=== PATIENT | male | born 1930 | race Caucasian/White ===

== ENCOUNTER 2017-03-16 18:10 | Inpatient (IN) | payer MEDICARE, OTHER ==
--- NOTE | 2017-03-16 18:37 | ERNOTE ---
Medical Problem HPI - Narrative Date of Service: 03/16/17 - General Chief Complaint: General Assessment Time Seen by Provider: 03/16/17 18:21 Source: patient, EMS, half-way records Exam Limitations: no limitations - Immun/Allergies/Home Medications Immunizations: IMMUNIZATION HX Immunizations Up to Date Yes History of Influenza Vaccine Yes Hx Pneumococcal Vaccination Yes Allergies/Adverse Reactions: Allergies No Known Allergies Allergy (Verified 09/20/14 11:36) Home Medications: HOME MEDICATIONS Aspirin [Aspirin Enteric Coated] 81 mg PO DAILY 09/07/14 [Last Taken Unknown] Bisacodyl [Dulcolax Suppository] 10 mg RC DAILY PRN 09/07/14 [Last Taken Unknown ] Calcium Carbonate [Tums] 500 mg PO BID 09/07/14 [Last Taken Unknown] Cyanocobalamin (Vitamin B-12) [Vitamin B-12] 500 mcg SL DAILY 09/07/14 [Last Taken Unknown] Docusate Sodium [Colace] 1 cap PO BID PRN 09/07/14 [Last Taken Unknown] Finasteride [Proscar] 5 mg PO DAILY 09/07/14 [Last Taken Unknown] Insulin Aspart [Novolog] 4 units SC 1100 PRN 09/07/14 [Last Taken Unknown] Insulin Aspart [Novolog] 11 units SC 1700 09/07/14 [Last Taken Unknown] Insulin Glargine,Hum.rec.anlog [Lantus] 20 units SC HS 09/07/14 [Last Taken Unknown] Loperamide HCl [Imodium] 2 mg PO DAILY PRN 09/07/14 [Last Taken Unknown] Lovastatin 10 mg PO HS 09/07/14 [Last Taken Unknown] Nitroglycerin [Nitrostat] 0.4 mg SL Q5MIN PRN 09/07/14 [Last Taken Unknown] Metoprolol Tartrate [Lopressor] 25 mg PO BID tablet 09/13/14 [Last Taken Unknown] Furosemide [Lasix] 80 mg PO TID #90 tab 09/22/14 [Last Taken Unknown] Chlorhexidine Gluconate 03/16/17 [Last Taken Unknown] Insulin Aspart [Novolog] 5 units SC 0700 03/16/17 [Last Taken Unknown] Insulin Glargine,Hum.rec.anlog [Lantus] 5 units SC DAILY 03/16/17 [Last Taken Unknown] Iron Aspgly,Ps/C/Succinic Acid [Ferrex 150 Plus Capsule] 1 each PO BID 03/16/17 [Last Taken Unknown] Omeprazole [Prilosec] 20 mg PO DAILY 03/16/17 [Last Taken Unknown] Potassium Chloride [Klor-Con M20] 20 meq PO BID 03/16/17 [Last Taken Unknown] Primidone 250 mg PO HS 03/16/17 [Last Taken Unknown] Protonix 40 mg PO DAILY 03/16/17 [Last Taken Unknown] Temazepam 15 mg PO HS 03/16/17 [Last Taken Unknown] - History of Present History Narrative: Patient presents to the ER per EMS from care facility with complaints of bilateral periorbital swelling with peripheral edema. Staff state he holds his head in a forward position leading to more fluid in the face. Date (Duration): 02/27/17 Timing: getting worse Severity: moderate Modifying Factors - (Improves): Present: medication, other - When he lays his head back rather than forward. Modifying Factors - (Worsens): Present: other - tipping head foreward. Review of Systems - Narrative Narrative: Patient denying any pain at this time. States he has chronic pain in the back and hip causing him to hold the head forward and down leading to the increased swelling. Staff state he has less activity with increase malaise over the past few days. - Review of Systems Constitutional: Present: no symptoms reported EYE: Present: other - Difficult to see out due to periorbital swelling and edema. ENT: Present: no symptoms reported Respiratory: Present: no symptoms reported Cardiology: Present: no symptoms reported Gastrointestinal/Abdominal: Present: no symptoms reported Musculoskeletal: Present: other - Patient complains of chronic back and right hip pain. Skin: Present: other - Has noticed more swelling across body including periorbital and in lower extremities. Neurological: Present: other - Patient denies any neurological changes but staff state he is less active. - Patient's Past Medical History Patient History - Medical: Diabetes Type 2, Dementia, Renal Disease, Renal Failure Patient History - Cardiac/Respiratory: Atrial Fibrillation, CHF, Hypertension Patient History - Cancer: Skin Patient History - Surgical Procedures: Cardiac stent Patient History - Other: None - Family History Mother Family History - Medical: , Diabetes Type 2 Family History - Cardiac/Respiratory: Other Father Family History - Medical: , Diabetes Type 2 Family History - Cardiac/Respiratory: Other - Social History Abuse History: No History of abuse Psych History: Hx of Depression - Immunizations Immunizations Up to Date: Yes Hx Pneumococcal Vaccination: Yes History of Influenza Vaccine: Yes Physical Exam - Physical Exam General Appearance: Present: wd/wn, alert Eye Exam: Normal inspection: bilateral - Bilateral periorbital swelling. , PERRL : bilateral, EOMI: bilateral Neck: Present: normal inspection, supple, other - No bruits Respiratory: Present: other - Course throughout. No rales or rhonchi. Cardiovascular/Chest: Present: bradycardia, other - Systolic murmur present. Peripheral Pulses: N=norm/S=strong/W=weak/B=bound/A=absent: Dorsalis-pedis (R): Weak - Likely due to edema, Dorsalis-pedis (L): Weak - likely due to edema Gastrointestinal/Abdominal: Present: nontender, nondistended, soft, other - Hyperactive BS Extremity Exam: Present: other - Significant pedal edema 3+ pitting. Sensation intact. Cap refill <3 seconds Neurological Exam: Present: alert, oriented Skin Exam: Present: warm/dry ED Progress - Results and Orders Patient's Lab Results:: I have reviewed the patient's lab results. - Vital Signs Patient's Vital Signs:: I have reviewed the patient's vital signs. Vital Signs: Vital Signs 03/16/17 03/16/17 18:12 18:27 Temperature 36.4 C L Pulse Rate 48 L 42 L Respiratory 15 11 L Rate Blood Pressure 94/33 139/46 O2 Sat by Pulse 93 92 Oximetry - EKG EKG read: Reviewed by me EKG Comments: Bradycardia with 1st degree block. - Progress/Reassessment Chief Complaint: General Assessment Progress:: Re-examined - No significant changes at this time. - Transfer of Care Additional Notes: Have given the patient the option to transfer to [place] to be evaluated for possible pacemaker. Patient wished for me to contact son Steven who felt at this time it would be best to hold off on evaluation by cardiology. Patient agreed that they could possibly make such a decision next week if they desired. At this time they are refusing any consideration of a pacemaker. Patient is a DNR. Departure Clinical Impression: CHF (congestive heart failure) Qualifiers: Congestive heart failure type: diastolic Congestive heart failure chronicity: acute on chronic Qualified Code(s): I50.33 - Acute on chronic diastolic ( congestive) heart failure - Departure Disposition: [facility] Condition: Fair
[2017-03-16 18:54] LABS: Hematocrit 33.9 % (42.0-52.0); Hemoglobin 10.6 gm/dL (13.5-18.0); Mean Cell Volume 94.7 fl (78-100); Mean Corpuscular Hemoglobin 29.6 pg (27-31); Mean Corpuscular Hgb Conc 31.3 g/dl (32-36); Mean Platelet Volume 9.4 fl (6.0-9.5); Neutrophil # 4.4 K/mm3 (1.3-6.0); Neutrophil % 52.3 % (42-75.0); Platelet Count 147 K/mm3 (150-450); Red Blood Count 3.58 M/mm3 (4.7-6.0); Red Cell Distribution Width 14.3 % (11.5-14.0); White Blood Count 8.5 K/mm3 (4.0-10.5)
[2017-03-16 19:14] LABS: Anion Gap 17.3 mmol/L (6.8-13.8); BUN/Creatinine Ratio 23.1 (9.0-21.6); Calcium * 8.2 mg/dL (7.9-10.9); Carbon Dioxide 15.8 mmol/L (24-32.6); Potassium 5.1 mmol/L (3.4-4.6)
[2017-03-16] MEDS ORDERED: FUROSEMIDE 10 MG/ML VIAL IV ONE ×2 (19:21→23:21)
[2017-03-16] MEDS ORDERED: FUROSEMIDE 10 MG/ML VIAL ONE (19:24)
[2017-03-16] MEDS ORDERED: DEXTROSE 50%-WATER 50 ML SYRG ONE (21:48)
[2017-03-16] MEDS ORDERED: DEXTROSE 50%-WATER 50 ML SYRG IV ONE (21:54)
--- NOTE | 2017-03-17 00:05 | HP ---
Chief Complaint - Chief Complaint Date of Service: 03/17/17 Time of Service: 23:30 Chief Complaint: ' Weakness, increaseing swelling on eyes and legs'. Source of HPI- Pt reliable, ER provider report. History of Present Illness: Mr. Nobles is a 86-yr-old pt of Dr. Manav Noland with a PMH of: A-fib, BPH, CAD,CHF, CVA, COPD, DM II, HTN & PVD. Pt is a prison care resident at the [facility] and was brought to [facility] ER with of complaints of bilateral periorbital swelling with peripheral edema and fatigue Pt expresses concerns with increasing leg swelling for several days. He is on Lasix 80mg po tid and has been taking his medications. He denies Coughing, SOB, fevers, and chills. At the ED, CXR findings showed increased vascular congestion, concerning for CHF. Lab work showed : BNP of 6804, BUN/CR of 33/1.43. He was also found to be Bradycardic with HR in the 30s-40s (Usually on Metoprolol Tart. 25mg bid). He will be admitted under observation for CHF exacerbation which will respond well to continued IV diuretics and to monitor response. - Patient's Past Medical History Patient History - Medical: Diabetes Type 2, Dementia, Renal Disease, Renal Failure Patient History - Cardiac/Respiratory: Atrial Fibrillation, CHF, Hypertension Patient History - Cancer: Skin Patient History - Surgical Procedures: Cardiac stent Patient History - Other: None - Family History Mother Family History - Medical: , Diabetes Type 2 Family History - Cardiac/Respiratory: Other Father Family History - Medical: , Diabetes Type 2 Family History - Cardiac/Respiratory: Other - Social History [facility] Situations[facility] Abuse History: No History of abuse Psych History: Hx of Depression Smoking Status: Former smoker Have you smoked in the past 12 months: No Do you dip or chew tobacco: No Patient requests Smoking Cessation Consult: No Initiate information on Smoking Cessation: No - Immunizations Immunizations Up to Date: Yes Hx Pneumococcal Vaccination: Yes History of Influenza Vaccine: Yes Review Of Systems (GEN) - Review of Systems Generalized/Overall Review: Present: Weakness, Weight gain. Absent: Chills, Fever, Malaise EENTM: Absent: Eye Pain, Blurred Vision Respiratory: Present: Cough. Absent: Shortness of Breath, Orthopnea Cardiac: Present: Edema. Absent: Chest Pain, Palpitations, Syncope Abdominal: Present: Diarrhea. Absent: Nausea, Vomiting, Hematemesis, Abdominal Pain, Constipation Genitourinary: Absent: Burning, Itching, Urgency Musculoskeletal: Absent: Joint Pain, Back Pain, Joint Swelling Neurological: Absent: Headache, Anxiety, Depressed Skin: Absent: Dryness, Lesions, Lumps Endocrine: Absent: Intolerance to Cold, Increased Hunger, Flushing Misc: All systems neg except as marked Immunizations: IMMUNIZATION HX Immunizations Up to Date Yes History of Influenza Vaccine Yes Hx Pneumococcal Vaccination Yes Allergies/Adverse Reactions: Allergies Allergy/AdvReac Type Severity Reaction Status Date / Time No Known Allergies Allergy Verified 09/20/14 11:36 Home Medications: HOME MEDICATIONS Calcium Carbonate [Tums] 500 mg PO BID 09/07/14 [Last Taken Unknown] Cyanocobalamin (Vitamin B-12) [Vitamin B-12] 500 mcg SL DAILY 09/07/14 [Last Taken Unknown] Finasteride [Proscar] 5 mg PO HS 09/07/14 [Last Taken Unknown] Insulin Aspart [Novolog] 7 units SC 1200 PRN 09/07/14 [Last Taken Unknown] Insulin Glargine,Hum.rec.anlog [Lantus] 10 units SC HS 09/07/14 [Last Taken Unknown] Loperamide HCl [Imodium] 2 mg PO QID 09/07/14 [Last Taken Unknown] Lovastatin 10 mg PO HS 09/07/14 [Last Taken Unknown] Nitroglycerin [Nitrostat] 0.4 mg SL Q5MIN PRN 09/07/14 [Last Taken Unknown] Metoprolol Tartrate [Lopressor] 25 mg PO BID tablet 09/13/14 [Last Taken Unknown] Furosemide [Lasix] 80 mg PO TID #90 tab 09/22/14 [Last Taken Unknown] Cetirizine HCl 10 mg PO BID 03/16/17 [Last Taken Unknown] Chlorhexidine Gluconate 1 pkg TP 03/16/17 [Last Taken Unknown] Cholestyramine/Aspartame [Cholestyramine Light Packet] 1 pkt PO QID 03/16/17 [ Last Taken Unknown] Clopidogrel Bisulfate [Plavix] 75 mg PO DAILY 03/16/17 [Last Taken Unknown] Dextran 70/Hypromellose/Pf [Artificial Tears Drops] 1 each OP BID 03/16/17 [ Last Taken Unknown] Diphenoxylate HCl/Atropine [Lomotil Tablet] 1 each PO QID 03/16/17 [Last Taken Unknown] HYDROcodone/ACETAMINOPHEN [Hydrocodon-Acetaminophen 5-325] 1 each PO BID PRN [Last Taken Unknown] Insulin Aspart [Novolog] 7 units SC 1700 03/16/17 [Last Taken Unknown] Insulin Glargine,Hum.rec.anlog [Lantus] 5 units SC QAM 03/16/17 [Last Taken Unknown] Iron Aspgly,Ps/C/Succinic Acid [Ferrex 150 Plus Capsule] 1 each PO BID 03/16/17 [Last Taken Unknown] Memantine HCl [Namenda Xr] 28 mg PO DAILY 03/16/17 [Last Taken Unknown] Multivit-Min/FA/Lycopen/Lutein [Sentry Senior Multivitamin Tab] 1 tab PO QAM [Last Taken Unknown] Potassium Chloride [Klor-Con M20] 20 meq PO BID 03/16/17 [Last Taken Unknown] Primidone 250 mg PO HS 03/16/17 [Last Taken Unknown] Acetaminophen 325 mg PO Q6H PRN 03/17/17 [Last Taken Unknown] Calcium Carbonate [Calcium Antacid] 500 mg PO QID PRN 03/17/17 [Last Taken Unknown] Hydrophilic Ointment [Aquaphilic Ointment] 1 appl TP DAILY 03/17/17 [Last Taken Unknown] Menthol [Biofreeze] 1 appl TP HS 03/17/17 [Last Taken Unknown] Menthol/Zinc Oxide [Calmoseptine Ointment] 71 gm TP BID 03/17/17 [Last Taken Unknown] Miconazole Nitrate [Carlos Alberto Antifungal] 1 appl TP DAILY PRN 03/17/17 [Last Taken Unknown] Exam - Exam Vital Signs: Vital Signs - Last Taken Temp 35.5 C L 03/16/17 22:36 Pulse 49 L 03/16/17 22:36 Resp 16 03/16/17 22:36 BP 144/45 03/16/17 22:36 Pulse Ox 95 03/16/17 22:36 Constitutional: Present: Alert, Oriented x3, Cooperative, No distress ENT Exam: Present: normal ENT inspection Eye Exam: bilateral eye: PERRL, other - periorbital edema Neck: Present: non-tender, full range of motion, supple Back Exam: Present: normal inspection Respiratory: Present: no accessory muscle use, No rales, No wheezing Cardiovascular/Chest: Present: bradycardia Abdomen: Present: Normal bowel sounds, soft, nontender, obese /Rectal: Present: Exam deferred Extremity: Present: pedal edema - 4+ BLE pitting edema Skin Exam: Present: warm/dry, no cyanosis Lymphatic: Present: no adenopathy Neurologic: Present: oriented x 3 Appearance: Present: appropriate appearance, appropriate insight Eye contact: Present: cooperative, good eye contact, normal speech Thoughts: Present: normal thought pattern, no apparent hallucination Diagnostic Studies: Laboratory Results WBC 8.5 K/mm3 (4.0-10.5) 03/16/17 18:45 RBC 3.58 M/mm3 (4.7-6.0) L 03/16/17 18:45 Hgb 10.6 gm/dL (13.5-18.0) L 03/16/17 18:45 Hct 33.9 % (42.0-52.0) L 03/16/17 18:45 MCV 94.7 fl (78-100) 03/16/17 18:45 MCH 29.6 pg (27-31) 03/16/17 18:45 MCHC 31.3 g/dl (32-36) L 03/16/17 18:45 RDW 14.3 % (11.5-14.0) H 03/16/17 18:45 Plt Count 147 K/mm3 (150-450) L 03/16/17 18:45 MPV 9.4 fl (6.0-9.5) 03/16/17 18:45 Immature Gran % (Auto) 0.90 % (0.001-0.429) H 03/16/17 18:45 Immature Gran # (Auto) 0.08 K/mm3 (0.000-0.0310) H 03/16/17 18:45 Neutrophils % 52.3 % (42-75.0) 03/16/17 18:45 Lymphocytes % 34.2 % (20-51) 03/16/17 18:45 Monocytes % 11.0 % (0.0-9) H 03/16/17 18:45 Eosinophils % 1.2 % (0.0-3.0) 03/16/17 18:45 Basophils % 0.4 % (0.0-1.0) 03/16/17 18:45 Nucleated RBC % 0.0 k/mm3 (0-1) 03/16/17 18:45 Neutrophils # 4.4 K/mm3 (1.3-6.0) 03/16/17 18:45 Lymphocytes # 2.9 k/mm3 (1.5-3.5) 03/16/17 18:45 Monocytes # 0.9 k/mm3 (0.0-1.0) 03/16/17 18:45 Eosinophils # 0.1 k/mm3 (0.0-0.7) 03/16/17 18:45 Absolute Basophils 0.0 k/mm3 (0.0-0.1) 03/16/17 18:45 Sodium 142 mmol/L (132-142) 03/16/17 18:45 Plasma Sodium 141 mmol/L (130-142) 03/16/17 18:45 Potassium 5.1 mmol/L (3.4-4.6) H 03/16/17 18:45 Chloride 114 mmol/L (97-106) H 03/16/17 18:45 Carbon Dioxide 15.8 mmol/L (24-32.6) L 03/16/17 18:45 Anion Gap 17.3 mmol/L (6.8-13.8) H 03/16/17 18:45 BUN 33 mg/dL (6-23) H D 03/16/17 18:45 Creatinine 1.43 mg/dL (0.4-1.4) H 03/16/17 18:45 Est GFR (Non-Af Amer) 50 mL/min (60-130) L D 03/16/17 18:45 BUN/Creatinine Ratio 23.1 (9.0-21.6) H 03/16/17 18:45 Random Glucose 44 mg/dL (70-110) L D 03/16/17 21:25 Calcium 8.2 mg/dL (7.9-10.9) 03/16/17 18:45 B-Natriuretic Peptide 6804 pg/mL (5-650) H 03/16/17 18:45 Assessment/Plan - Assessment/Plan (1) CHF exacerbation Assessment: presented with C/C of periorbital edema, peripheral edema, Fatigue. CXR concerning for fluid overload, and BNP of 6804. Normaly on Lasix 80mg tid. Will need to be diuresed with IV lasix. Will monitor fluid volume status & electrolyte to determine daily doses. Place weiss for strict i/o and monitor V.S & daily Wts. Problem: Acute (2) Acute on chronic renal failure Assessment: BUN/CR of 33/1.43- Probably worsened by third spacing of fluids. Give diuretics , monitor BMP in am. Problem: Acute (3) Bradycardia on ECG Assessment: Pt was asymptomatic. Do not suspect conduction system abnormalities as pt is on Metoprolol 25mg bid and will hold the med for HR < 60. Place on telemetry monitoring. Pt refuses pacemaker placement in the event of unstable bradyarrhythmia. Problem: Acute (4) A-fib Assessment: Place on Telemetry monitoing- Hold metoprolol due to sinus Augusto. Problem: Chronic (5) HTN (hypertension) Assessment: Stable- Problem: Chronic Qualifiers: Hypertension type: essential hypertension Qualified Code(s): I10 - Essential (primary) hypertension (6) Diabetes mellitus Assessment: Stable- Accucheck ACHC, Continue long acting and mealtime insulin. Problem: Chronic Qualifiers: Diabetes mellitus type: type 2 (7) CVA (cerebral vascular accident) Assessment: Stable- On Zocor & Plavix Problem: Chronic (8) COPD (chronic obstructive pulmonary disease) Problem: Chronic
[2017-03-17] MEDS ORDERED: INSULIN ASPART 100 UNITS/ML VIAL SC PRN (00:49)
[2017-03-17] MEDS ORDERED: NITROGLYCERIN 0.4 MG/TAB BTL SL PRN (00:49)
[2017-03-17] MEDS ORDERED: FUROSEMIDE 10 MG/ML VIAL ONE (00:57)
[2017-03-17] MEDS ORDERED: LIDOCAINE HCL 10 APPL CARTRIDGE ONE (01:23)
[2017-03-17] MEDS ORDERED: CALCIUM CARBONATE 500 MG TAB.CHEW PO PRN (01:30)
[2017-03-17] MEDS: HYDROcodone/ACETAMINOPHEN 1 EACH TABLET PO PRN ×2 (02:26→20:59)
--- NOTE | 2017-03-17 06:10 | PN ---
Subjective - Date and Time Seen Date: 03/17/17 Time: 06:06 Subjective Narrative: Mr. Nobles examined this am. The periorbital swelling is decreased. Still has significant 4+ BLE tibial/pedal edema. Diuresed about 3 L with 80 of IV Lasix. No other acute events overnight. Remained in Sinus Brian. in upper 50s in the night. Objective - Vitals Vitals: Last Vital Signs Temp 36.3 C L 03/17/17 03:35 Pulse 63 03/17/17 04:56 Resp 18 03/17/17 03:35 BP 150/62 03/17/17 03:35 Pulse Ox 95 03/17/17 03:35 - Exam Constitutional: Present: Alert, Oriented x3, Cooperative, No distress ENT Exam: Present: normal ENT inspection Neck: Present: non-tender, full range of motion, supple Breasts: Present: Exam deferred Respiratory: Present: no accessory muscle use, rales, No wheezing Cardiovascular/Chest: Present: regular rate, rhythm Abdomen: Present: Normal bowel sounds, soft, nontender /Rectal: Present: Exam deferred Extremity: Present: lower extremity edema - 4 + tibial/pedal edema, other - Periorbital edema Skin Exam: Present: no cyanosis Lymphatic: Present: no adenopathy Neurologic: Present: no motor/sensory deficits, alert, oriented x 3 Appearance: Present: appropriate appearance, appropriate insight Eye contact: Present: cooperative, good eye contact, normal speech Thoughts: Present: normal thought pattern, no apparent hallucination Cauti Physician Documentation - Urinary Catheter Management Urethral (Weiss) Date of Insertion: 03/17/17 Time of Insertion: 01:30 Assessment/Plan - Problems/Diagnosis (1) CHF exacerbation Problem: Acute Narrative: presented with C/C of periorbital edema, peripheral edema, Fatigue. CXR concerning for fluid overload, and BNP of 6804. Normally on Lasix 80mg tid. Will need to be diuresed with IV lasix. Will monitor fluid volume status & electrolyte to determine daily doses. Place weiss for strict i/o and monitor V.S & daily Wts. 03/17- Diuresed 3 L with IV lasix. Swelling on eyes decreased. Still has significant BLE pitting edema. Usually on Lasix 80 tid at home. Continue iv lasix. BMP in am. (2) Acute on chronic renal failure Problem: Acute Narrative: BUN/CR of 33/1.43- Probably worsened by third spacing of fluids, or Lasix. Kidney function not any worse this am. Monitor closely while we continue with diuretics. (3) Bradycardia on ECG Problem: Acute Narrative: Pt was asymptomatic. Do not suspect conduction system abnormalities as pt is on Metoprolol 25mg bid and will hold the med for HR < 60. Place on telemetry monitoring. Pt refuses pacemaker placement in the event of unstable bradyarrhythmia. 03/17 -Remained in Sinus Bradycardia in upper 50s in the night. (4) A-fib Problem: Chronic Narrative: Place on Telemetry monitoing- Hold metoprolol due to sinus Augusto. (5) Diabetes mellitus Problem: Chronic Qualifiers: Diabetes mellitus type: type 2 (6) CVA (cerebral vascular accident) Problem: Chronic Narrative: Stable- On Zocor & Plavix (7) HTN (hypertension) Problem: Chronic Qualifiers: Hypertension type: essential hypertension Qualified Code(s): I10 - Essential (primary) hypertension Narrative: Stable- Accucheck ACHC, Continue long acting and mealtime insulin (8) COPD (chronic obstructive pulmonary disease) Problem: Chronic
[2017-03-17 06:13] LABS: BUN/Creatinine Ratio 24.7 (9.0-21.6); Calcium * 8.1 mg/dL (7.9-10.9); Carbon Dioxide 15.1 mmol/L (24-32.6); Estimated Creat Clear 38.2; Potassium 4.1 mmol/L (3.4-4.6)
[2017-03-17] MEDS: CALCIUM CARBONATE 500 MG TAB.CHEW PO SCH ×2 (10:22→20:51)
[2017-03-17] MEDS: CLOPIDOGREL BISULFATE 75 MG TABLET PO SCH (10:22)
[2017-03-17] MEDS: LORATADINE 10 MG TABLET PO SCH ×2 (10:22→20:50)
[2017-03-17] MEDS: CYANOCOBALAMIN 1,000 MCG TABLET PO SCH (10:22)
[2017-03-17] MEDS: INSULIN GLARGINE,HUM.REC.ANLOG 100 UNITS/ML VIAL SC SCH ×2 (10:23→20:50)
[2017-03-17] MEDS: PSYLLIUM SEED 1 PACKET PACKET PO SCH (13:55)
[2017-03-17] MEDS: SENNOSIDES 8.6 MG TABLET PO SCH ×2 (13:55→20:52)
[2017-03-17] MEDS ORDERED: FUROSEMIDE 10 MG/ML VIAL IV ONE (15:57)
[2017-03-17] MEDS ORDERED: SPIRONOLACTONE 25 MG TABLET PO ONE (15:59)
[2017-03-17] MEDS: FAMOTIDINE 20 MG TABLET PO SCH (16:39)
[2017-03-17] MEDS: INSULIN ASPART 100 UNITS/ML VIAL SC SCH (16:40)
[2017-03-17] MEDS ORDERED: LISINOPRIL 10 MG TABLET PO SCH (20:00)
[2017-03-17] MEDS: PRIMIDONE 250 MG TABLET PO SCH (20:51)
[2017-03-17] MEDS: SIMVASTATIN 5 MG TABLET PO SCH (20:51)
[2017-03-17] MEDS: MEMANTINE HCL 10 MG TABLET PO SCH (20:51)
[2017-03-18] MEDS: ACETAMINOPHEN 325 MG TABLET PO PRN (00:50)
[2017-03-18] MEDS: FAMOTIDINE 20 MG TABLET PO SCH ×2 (06:30→17:10)
[2017-03-18 06:35] LABS: Albumin * 2.5 gm/dl (3.4-5.0); Anion Gap 14.3 mmol/L (6.8-13.8); Bilirubin, Total 0.7 mg/dL (0.0-1.1); Ca. Corrected For Albumin 8.6 mg/dL (8.4-10.2); Calcium * 7.7 mg/dL (7.9-10.9); Carbon Dioxide 20.1 mmol/L (24-32.6); Potassium 3.4 mmol/L (3.4-4.6); Total Protein 6.7 gm/dL (6.2-8.2)
[2017-03-18] MEDS ORDERED: FUROSEMIDE 10 MG/ML VIAL IV SCH (07:45)
--- NOTE | 2017-03-18 08:09 | PN ---
Subjective - Date and Time Seen Date: 03/18/17 Time: 08:02 Subjective Narrative: Continues to improve with IV Lasix. Weight loss continue. SOB improves. Orthopnea improves. Bradycardia better off of beta carlotta, will not restart. Objective - Review of Systems Generalized/Overall Review: Reports: Malaise EENTM: Reports: No Symptoms Reported Respiratory: Reports: Shortness of Breath, Orthopnea Cardiac: Reports: Edema Abdominal: Reports: Nausea Genitourinary Symptoms: Reports: No Symptoms Reported Musculoskeletal Complaints: Reports: No Symptoms Reported Neurological: Reports: No Symptoms Reported Skin: Reports: No Symptoms Reported Endocrine: Reports: No Symptoms Reported Misc: All systems neg except as marked - Vitals Vitals: Last Vital Signs Selected Entries 03/18/17 06:47 Temperature 36.7 C Temperature Oral Source Pulse Rate 64 Respiratory 20 Rate Respiratory Normal Depth Blood Pressure 122/39 Blood Pressure Sitting Position O2 Sat by Pulse 98 Oximetry Oxygen Delivery Room Air Method Oxygen Flow 0 Rate - Abnormal Lab Findings Abnormal Lab Findings: Abnormal Lab Results 03/18/17 Range/Units 05:58 Chloride 109 H (97-106) mmol/L Carbon Dioxide 20.1 L (24-32.6) mmol/L Anion Gap 14.3 H (6.8-13.8) mmol/L BUN 37 H (6-23) mg/dL Creatinine 1.61 H (0.4-1.4) mg/dL Est GFR (Non-Af Amer) 44 L (60-130) mL/min BUN/Creatinine Ratio 23.0 H (9.0-21.6) Random Glucose 133 H (70-110) mg/dL Calcium 7.7 L (7.9-10.9) mg/dL Alkaline Phosphatase 193 H (50-170) U/L Albumin 2.5 L (3.4-5.0) gm/dl - Exam Constitutional: Present: Alert, Oriented x3, Cooperative, Well developed, Well nourished, No distress ENT Exam: Present: normal ENT inspection Neck: Present: normal inspection Respiratory: Present: no respiratory distress, rales, wheezing Cardiovascular/Chest: Present: regular rate, rhythm, no murmur Abdomen: Present: Normal bowel sounds, soft, nontender, nondistended, no rebound tenderness, no hepatospenomegaly, no masses Extremity: Present: lower extremity edema Skin Exam: Present: normal color, warm/dry, no cyanosis Neurologic: Present: alert, oriented x 3 Appearance: Present: appropriate appearance, appropriate insight, neat Eye contact: Present: cooperative, good eye contact, normal speech Thoughts: Present: normal thought pattern Cauti Physician Documentation - Urinary Catheter Management Urethral (Rangel) Date of Insertion: 03/17/17 Time of Insertion: 01:30 Assessment/Plan Plan Narrative: IV Lasix for two more days. Follow LABS; PT and OT. Echo. - Problems/Diagnosis (1) CHF (congestive heart failure) Problem: Acute Qualifiers: Congestive heart failure type: diastolic Congestive heart failure chronicity: acute on chronic Qualified Code(s): I50.33 - Acute on chronic diastolic (congestive) heart failure (2) CHF exacerbation Problem: Acute (3) A-fib Problem: Chronic (4) HTN (hypertension) Problem: Chronic Qualifiers: Hypertension type: essential hypertension Qualified Code(s): I10 - Essential (primary) hypertension (5) CKD (chronic kidney disease) stage 3, GFR 30-59 ml/min Problem: Chronic (6) Diabetes mellitus Problem: Chronic Qualifiers: Diabetes mellitus type: type 2
[2017-03-18] MEDS: MULTIVIT-MIN/FA/LYCOPEN/LUTEIN 1 TAB TABLET PO SCH (08:45)
[2017-03-18] MEDS: HYDROPHILIC OINTMENT 454 APPL JAR TP SCH (08:45)
[2017-03-18] MEDS: FUROSEMIDE 40 MG, FUROSEMIDE 20 MG IV SCH ×6 (08:45→22:59)
[2017-03-18] MEDS: POLYVINYL ALCOHOL 150 DROP BTL OP SCH ×2 (08:45→20:07)
[2017-03-18] MEDS: PSYLLIUM SEED 1 PACKET PACKET PO SCH (08:46)
[2017-03-18] MEDS: CYANOCOBALAMIN 1,000 MCG TABLET PO SCH (08:46)
[2017-03-18] MEDS: LORATADINE 10 MG TABLET PO SCH ×2 (08:46→20:09)
[2017-03-18] MEDS: INSULIN GLARGINE,HUM.REC.ANLOG 100 UNITS/ML VIAL SC SCH ×2 (08:46→20:20)
[2017-03-18] MEDS: CALCIUM CARBONATE 500 MG TAB.CHEW PO SCH ×2 (08:46→20:08)
[2017-03-18] MEDS: CLOPIDOGREL BISULFATE 75 MG TABLET PO SCH (08:46)
[2017-03-18] MEDS: CHOLESTYRAMINE/ASPARTAME 4 GM PACKET PO SCH ×4 (08:47→20:08)
[2017-03-18] MEDS: MEMANTINE HCL 10 MG TABLET PO SCH ×2 (08:47→20:08)
[2017-03-18] MEDS: IRON POLYSACCHARIDE COMPLEX 1 CAP CAPSULE PO SCH ×2 (08:47→20:09)
[2017-03-18] MEDS: NYSTATIN 15 APPL BTL TP SCH ×2 (12:56→20:10)
[2017-03-18] MEDS: HYDROcodone/ACETAMINOPHEN 1 EACH TABLET PO PRN ×2 (12:56→20:29)
[2017-03-18] MEDS ORDERED: ENOXAPARIN SODIUM 40 MG/0.4 ML SYRG SC SCH (13:45)
[2017-03-18] MEDS: INSULIN ASPART 100 UNITS/ML VIAL SC SCH (17:09)
[2017-03-18] MEDS ORDERED: LISINOPRIL 5 MG TABLET PO SCH (20:00)
[2017-03-18] MEDS: SENNOSIDES 8.6 MG TABLET PO SCH (20:08)
[2017-03-18] MEDS: MICONAZOLE NITRATE 30 APPL TUBE TP PRN (20:08)
[2017-03-18] MEDS: SIMVASTATIN 5 MG TABLET PO SCH (20:08)
[2017-03-18] MEDS: PRIMIDONE 250 MG TABLET PO SCH (20:37)
[2017-03-18] MEDS ORDERED: FINASTERIDE 5 MG TABLET PO SCH (21:00)
[2017-03-19 06:22] LABS: Hematocrit 33.1 % (42.0-52.0); Hemoglobin 11.1 gm/dL (13.5-18.0); Mean Cell Volume 89.2 fl (78-100); Mean Corpuscular Hemoglobin 29.9 pg (27-31); Mean Corpuscular Hgb Conc 33.5 g/dl (32-36); Mean Platelet Volume 9.9 fl (6.0-9.5); Neutrophil # 4.1 K/mm3 (1.3-6.0); Neutrophil % 46.2 % (42-75.0); Platelet Count 183 K/mm3 (150-450); Red Blood Count 3.71 M/mm3 (4.7-6.0); White Blood Count 8.8 K/mm3 (4.0-10.5)
[2017-03-19 06:34] LABS: Anion Gap 16.3 mmol/L (6.8-13.8); BUN/Creatinine Ratio 26.2 (9.0-21.6); Calcium * 8.1 mg/dL (7.9-10.9); Carbon Dioxide 20.6 mmol/L (24-32.6); Estimated Creat Clear 37.4; Potassium 2.9 mmol/L (3.4-4.6)
[2017-03-19] MEDS: FAMOTIDINE 20 MG TABLET PO SCH (07:44)
[2017-03-19] MEDS: FUROSEMIDE 40 MG, FUROSEMIDE 20 MG IV SCH ×2 (07:51)
--- NOTE | 2017-03-19 08:08 | DS ---
(1) CHF (congestive heart failure) Problem: Acute Qualifiers: Congestive heart failure type: diastolic Congestive heart failure chronicity: acute on chronic Qualified Code(s): I50.33 - Acute on chronic diastolic (congestive) heart failure (2) CHF exacerbation Problem: Acute Qualifiers: Congestive heart failure type: diastolic Qualified Code(s): I50.33 - Acute on chronic diastolic (congestive) heart failure (3) A-fib Problem: Chronic Qualifiers: Atrial fibrillation type: chronic Qualified Code(s): I48.2 - Chronic atrial fibrillation (4) HTN (hypertension) Problem: Chronic Qualifiers: Hypertension type: essential hypertension Qualified Code(s): I10 - Essential (primary) hypertension (5) CKD (chronic kidney disease) stage 3, GFR 30-59 ml/min Problem: Chronic (6) Diabetes mellitus Problem: Chronic Qualifiers: Diabetes mellitus type: type 2 (7) Hypokalemia Problem: Acute Description of Stay: Steadily improved with IV lasix. Noted to have a potassium of 2.9 today. Started potassium 20 meQ tid today and will recheck a BMP tomorrow. I expect him to do well. We will also send him out on a higher dose of oral lasix that he had been on previously. Procedures Performed: none Discharge Disposition: [facility] Disposition: [facility] Condition: Good Discharge Activity: Activity as tolerated Discharge Diet: Consistent carbs, Low salt Discharge Level of Care:: SNF - Snf Snf Therapy: Physicial Therapy Referrals: Manav Woodall MD [Primary Care Provider] - Problem Oriented Discharge Instructions to Patient/Family: Heart Failure, Easy- to-Read Additional Patient Instructions (free text): Finger stick blood sugars ac/hs BMP tomorrow Prescriptions (Any new or edited meds): Furosemide [Lasix] 120 mg PO Q8H #1 tab Potassium Chloride [K-Dur] 40 meq PO TID #1 tablet.sa Complete Home Medications List: Complete Home Medication List: Calcium Carbonate [Tums] 500 mg PO BID 09/07/14 Cyanocobalamin (Vitamin B-12) [Vitamin B-12] 500 mcg SL DAILY 09/07/14 Finasteride [Proscar] 5 mg PO HS 09/07/14 Insulin Aspart [Novolog] 7 units SC 1200 PRN 09/07/14 Insulin Glargine,Hum.rec.anlog [Lantus] 10 units SC HS 09/07/14 Lovastatin 10 mg PO HS 09/07/14 Nitroglycerin [Nitrostat] 0.4 mg SL Q5MIN PRN 09/07/14 Cetirizine HCl 10 mg PO BID 03/16/17 Chlorhexidine Gluconate 1 pkg TP 03/16/17 Cholestyramine/Aspartame [Cholestyramine Light Packet] 1 pkt PO QID 03/16/17 Clopidogrel Bisulfate [Plavix] 75 mg PO DAILY 03/16/17 Dextran 70/Hypromellose/Pf [Artificial Tears Drops] 1 each OP BID 03/16/17 HYDROcodone/ACETAMINOPHEN [Hydrocodon-Acetaminophen 5-325] 1 each PO BID PRN Insulin Aspart [Novolog] 7 units SC 1700 03/16/17 Insulin Glargine,Hum.rec.anlog [Lantus] 5 units SC QAM 03/16/17 Iron Aspgly,Ps/C/Succinic Acid [Ferrex 150 Plus Capsule] 1 each PO BID 03/16/17 Memantine HCl [Namenda Xr] 28 mg PO DAILY 03/16/17 Multivit-Min/FA/Lycopen/Lutein [[facility] Senior Multivitamin Tab] 1 tab PO QAM Primidone 250 mg PO HS 03/16/17 Acetaminophen 325 mg PO Q6H PRN 03/17/17 Hydrophilic Ointment [Aquaphilic Ointment] 1 appl TP DAILY 03/17/17 Menthol [Biofreeze] 1 appl TP HS 03/17/17 Menthol/Zinc Oxide [Calmoseptine Ointment] 71 gm TP BID 03/17/17 Miconazole Nitrate [Carlos Alberto Antifungal] 1 appl TP DAILY PRN 03/17/17 Enoxaparin Sodium [Lovenox] 40 mg SC Q24H disp.syrin 03/19/17 Furosemide [Lasix] 120 mg PO Q8H #1 tab 03/19/17 Lisinopril [Zestril] 5 mg PO DAILY@2000 tablet 03/19/17 Nystatin [Mycostatin Powder] 1 appl TP BID btl 03/19/17 Potassium Chloride [K-Dur] 40 meq PO TID #1 tablet.sa 11/21/17 Psyllium Husk (with Sugar) [Metamucil] 1 each PO DAILY packet 03/19/17 Sennosides [Senokot] 17.2 mg PO HS tablet 03/19/17
[2017-03-19] MEDS: ACETAMINOPHEN 325 MG TABLET PO PRN (08:10)
[2017-03-19] MEDS: HYDROPHILIC OINTMENT 454 APPL JAR TP SCH (08:11)
[2017-03-19] MEDS: NYSTATIN 15 APPL BTL TP SCH (08:11)
[2017-03-19] MEDS: POLYVINYL ALCOHOL 150 DROP BTL OP SCH (08:12)
[2017-03-19] MEDS: MICONAZOLE NITRATE 30 APPL TUBE TP PRN (08:12)
[2017-03-19] MEDS: MULTIVIT-MIN/FA/LYCOPEN/LUTEIN 1 TAB TABLET PO SCH (08:12)
[2017-03-19] MEDS: LORATADINE 10 MG TABLET PO SCH (08:13)
[2017-03-19] MEDS: CHOLESTYRAMINE/ASPARTAME 4 GM PACKET PO SCH (08:13)
[2017-03-19] MEDS: PSYLLIUM SEED 1 PACKET PACKET PO SCH (08:13)
[2017-03-19] MEDS: MEMANTINE HCL 10 MG TABLET PO SCH (08:14)
[2017-03-19] MEDS: CLOPIDOGREL BISULFATE 75 MG TABLET PO SCH (08:14)
[2017-03-19] MEDS: IRON POLYSACCHARIDE COMPLEX 1 CAP CAPSULE PO SCH (08:14)
[2017-03-19] MEDS: CYANOCOBALAMIN 1,000 MCG TABLET PO SCH (08:14)
[2017-03-19] MEDS: CALCIUM CARBONATE 500 MG TAB.CHEW PO SCH (08:23)
[2017-03-19] MEDS: INSULIN GLARGINE,HUM.REC.ANLOG 100 UNITS/ML VIAL SC SCH (08:26)
[2017-03-19] MEDS ORDERED: POTASSIUM CHLORIDE 20 MEQ TABLET.SA PO SCH (09:00)
[2017-03-19 11:23] VITALS: BP 119/30
--- NOTE | 2017-03-19 15:44 | ECHO ---
This report is available in the EMR
== END 2017-03-19 13:15 | DRG 292 ==
LOC: ER 18:10 → MS 21:53 → OBSVTOIN 03-18 08:00
PROVIDERS: ADMIT Nurse Practitioner; ATTEND Allergy & Immunology
PROC: B246ZZZ Ultrasonography of Right and Left Heart (ICD-10-PCS; principal; 2017-03-18)
DX: I50.33 Acute on chronic diastolic (congestive) heart failure (principal); N17.9 Acute kidney failure, unspecified; E87.6 Hypokalemia; I48.2 Chronic atrial fibrillation; I12.9 Hypertensive chronic kidney disease with stage 1 through stage 4 chronic kidney disease, or unspecified chronic kidney disease; E11.22 Type 2 diabetes mellitus with diabetic chronic kidney disease; N18.3 Chronic kidney disease, stage 3 (moderate); Z87.891 Personal history of nicotine dependence; Z79.4 Long term (current) use of insulin; Z79.82 Long term (current) use of aspirin
CPT/HCPCS: 36415; 71010; 73502; 80048; 80053; 82947; 83880; 85025; 87081; 93005; 93306; 96374; 96375; 97110; 97116; 97161; 97165; 97530; 99284; G0378

== ENCOUNTER 2017-04-07 21:33 | Emergency (ER) | payer MEDICARE, OTHER ==
[2017-04-07] MEDS ORDERED: DEXTROSE 50%-WATER 50 ML SYRG ONE ×2 (21:40→22:41)
[2017-04-07] MEDS ORDERED: DEXTROSE 50%-WATER 50 ML SYRG IV ONE ×2 (21:53→22:33)
[2017-04-07 22:03] LABS: Hematocrit 39.7 % (42.0-52.0); Hemoglobin 12.5 gm/dL (13.5-18.0); Mean Cell Volume 95.4 fl (78-100); Mean Corpuscular Hgb Conc 31.5 g/dl (32-36); Mean Platelet Volume 9.5 fl (6.0-9.5); Neutrophil # 11.1 K/mm3 (1.3-6.0); Neutrophil % 72.3 % (42-75.0); Platelet Count 259 K/mm3 (150-450); Red Blood Count 4.16 M/mm3 (4.7-6.0); Red Cell Distribution Width 14.6 % (11.5-14.0); White Blood Count 15.4 K/mm3 (4.0-10.5)
[2017-04-07 22:12] LABS: Albumin * 2.6 gm/dl (3.4-5.0); Anion Gap 15.9 mmol/L (6.8-13.8); BUN/Creatinine Ratio 25.1 (9.0-21.6); Bilirubin, Total 0.2 mg/dL (0.0-1.1); Ca. Corrected For Albumin 9.3 mg/dL (8.4-10.2); Calcium * 8.5 mg/dL (7.9-10.9); Carbon Dioxide 13.7 mmol/L (24-32.6); Total Protein 7.4 gm/dL (6.2-8.2)
--- NOTE | 2017-04-07 22:30 | ERNOTE ---
Medical Problem HPI - Narrative Date of Service: 04/07/17 - General Chief Complaint: General Assessment Time Seen by Provider: 04/07/17 21:38 Source: patient Exam Limitations: no limitations - Immun/Allergies/Home Medications Immunizations: IMMUNIZATION HX Immunizations Up to Date Yes History of Influenza Vaccine Yes Hx Pneumococcal Vaccination Yes Allergies/Adverse Reactions: Allergies No Known Allergies Allergy (Verified 09/20/14 11:36) Home Medications: HOME MEDICATIONS Calcium Carbonate [Tums] 500 mg PO BID 09/07/14 [Last Taken Unknown] Cyanocobalamin (Vitamin B-12) [Vitamin B-12] 500 mcg SL DAILY 09/07/14 [Last Taken Unknown] Finasteride [Proscar] 5 mg PO HS 09/07/14 [Last Taken Unknown] Insulin Aspart [Novolog] 7 units SC 1200 PRN 09/07/14 [Last Taken Unknown] Insulin Glargine,Hum.rec.anlog [Lantus] 10 units SC HS 09/07/14 [Last Taken Unknown] Lovastatin 10 mg PO HS 09/07/14 [Last Taken Unknown] Nitroglycerin [Nitrostat] 0.4 mg SL Q5MIN PRN 09/07/14 [Last Taken Unknown] Cetirizine HCl 10 mg PO BID 03/16/17 [Last Taken Unknown] Chlorhexidine Gluconate 1 pkg TP 03/16/17 [Last Taken Unknown] Cholestyramine/Aspartame [Cholestyramine Light Packet] 1 pkt PO QID 03/16/17 [ Last Taken Unknown] Clopidogrel Bisulfate [Plavix] 75 mg PO DAILY 03/16/17 [Last Taken Unknown] Dextran 70/Hypromellose/Pf [Artificial Tears Drops] 1 each OP BID 03/16/17 [ Last Taken Unknown] HYDROcodone/ACETAMINOPHEN [Hydrocodone-Acetamin 5-325 mg] 1 each PO BID PRN [Last Taken Unknown] Insulin Aspart [Novolog] 7 units SC 1700 03/16/17 [Last Taken Unknown] Insulin Glargine,Hum.rec.anlog [Lantus] 5 units SC QAM 03/16/17 [Last Taken Unknown] Iron Aspgly,Ps/C/Succinic Acid [Ferrex 150 Plus Capsule] 1 each PO BID 03/16/17 [Last Taken Unknown] Memantine HCl [Namenda Xr] 28 mg PO DAILY 03/16/17 [Last Taken Unknown] Multivit-Min/FA/Lycopen/Lutein [[facility] Senior Multivitamin Tab] 1 tab PO QAM [Last Taken Unknown] Primidone 250 mg PO HS 03/16/17 [Last Taken Unknown] Acetaminophen 325 mg PO Q6H PRN 03/17/17 [Last Taken Unknown] Hydrophilic Ointment [Aquaphilic Ointment] 1 appl TP DAILY 03/17/17 [Last Taken Unknown] Menthol [Biofreeze] 1 appl TP HS 03/17/17 [Last Taken Unknown] Menthol/Zinc Oxide [Calmoseptine Ointment] 71 gm TP BID 03/17/17 [Last Taken Unknown] Miconazole Nitrate [Carlos Alberto Antifungal] 1 appl TP DAILY PRN 03/17/17 [Last Taken Unknown] Furosemide [Lasix] 120 mg PO Q8H #1 tab 03/19/17 [Last Taken Unknown] Lisinopril [Zestril] 5 mg PO DAILY@2000 tablet 03/19/17 [Last Taken Unknown] Nystatin [Mycostatin Powder] 1 appl TP BID btl 03/19/17 [Last Taken Unknown] Potassium Chloride [K-Dur] 40 meq PO TID #1 tablet.sa 03/19/17 [Last Taken Unknown] Psyllium Husk (with Sugar) [Metamucil] 1 each PO DAILY packet 03/19/17 [Last Taken Unknown] Sennosides [Senokot] 17.2 mg PO HS tablet 03/19/17 [Last Taken Unknown] - History of Present History Narrative: 86 year old that is a resident at [facility]. It was observed by the nursing staff that the became lethargic, disoriented and had cool feet at about 2030 hours. Vitals at the time were.......... On presentation to the ED the patient was fully alert, and oriented x 3. His only complaint at this time is that he does not feel well. Denies any unusual pain, or shortness of breath. Receives potassium chloride 40 meq po TID. PMH: pnumonia, CHF, CKD, DOPD, urinary retention, venous stasis dermatits, A-Fib , HTN, CVA, hypokalemia. Date (Duration): 04/07/17 Time (Timing): 22:29 Timing: constant Severity: mild Modifying Factors - (Improves): Present: other - nothing Modifying Factors - (Worsens): Present: other - nothing Review of Systems - Review of Systems Constitutional: Present: no symptoms reported EYE: Present: no symptoms reported ENT: Present: no symptoms reported Respiratory: Present: no symptoms reported Cardiology: Present: no symptoms reported Gastrointestinal/Abdominal: Present: no symptoms reported Genitourinary: Present: no symptoms reported Musculoskeletal: Present: no symptoms reported Neurological: Present: no symptoms reported Endocrine: Present: no symptoms reported Hematologic/Lymphatic: Present: no symptoms reported Psych: Present: no symptoms reported - Patient's Past Medical History Patient History - Medical: Diabetes Type 2, Dementia, Renal Disease, Renal Failure Patient History - Cardiac/Respiratory: Atrial Fibrillation, CHF, Hypertension Patient History - Cancer: Skin Patient History - Surgical Procedures: Cardiac stent Patient History - Other: None - Family History Mother Family History - Medical: , Diabetes Type 2 Family History - Cardiac/Respiratory: Other Father Family History - Medical: , Diabetes Type 2 Family History - Cardiac/Respiratory: Other - Social History Living Situations: home Abuse History: No History of abuse Psych History: Hx of Depression Smoking Status: Former smoker Alcohol Use: none Drug Use: none - Immunizations Immunizations Up to Date: Yes Hx Pneumococcal Vaccination: Yes History of Influenza Vaccine: Yes Physical Exam - Physical Exam General Appearance: Present: no apparent distress Head Exam: Present: normal inspection Eye Exam: Normal inspection: bilateral Ears, Nose, Throat: Present: normal ENT inspection Neck: Present: normal inspection Respiratory: Present: no respiratory distress, normal breath sounds Cardiovascular/Chest: Present: regular rate, rhythm Gastrointestinal/Abdominal: Present: nontender, nondistended Back Exam: Present: no vertebral tenderness Extremity Exam: Present: non-tender Neurological Exam: Present: alert, oriented, normal mood/affect Skin Exam: Present: normal color ED Progress - Results and Orders Patient's Lab Results:: I have reviewed the patient's lab results. - Vital Signs Patient's Vital Signs:: I have reviewed the patient's vital signs. - Vital Signs: Vital Signs 04/07/17 04/07/17 21:35 21:59 Temperature 36.1 C L Pulse Rate 67 78 Respiratory 18 20 Rate Blood Pressure 142/33 133/31 O2 Sat by Pulse 100 100 Oximetry - EKG EKG: NSR EKG read: Interp. by me EKG Comments: A fib, rate 58, ST depression in AVL, large T waves. 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 Areas of low attenuation within the periventricular white matter consistent with microvascular gliosis. No intracranial hemorrhage or extra-axial fluid collection. - Progress/Reassessment Chief Complaint: General Assessment Progress:: Improved Progress Note-Subjective: 04/08/17 01:29 The case was discussed with Dr. De La Cruz at the [facility] who has accepted the transfer of the patient. Also Discussed with Sathish, who agreed with transferring the patient to where a prize fighter was located in the event dialysis would be needed. Treatment of hyperkalemia: sodium bicarbonate one amp IV kayexolate 15 gms po Insulin 10 u x 2 Dextrose 50 x 2 Albuterol 10 mg PO IV fluids + Bumex 1 mg IV 04/08/17 07:00 Departure Clinical Impression: Hyperkalemia, UTI (urinary tract infection), Urinary retention - Departure Disposition: [facility] Condition: Fair Referrals: Manav Woodall MD [Primary Care Provider] -
[2017-04-07 22:33] LABS: Potassium 7.6 mmol/L (3.4-4.6)
[2017-04-07] MEDS ORDERED: INSULIN REGULAR, HUMAN 100 UNITS/ML VIAL SC ONE (22:33)
[2017-04-07] MEDS ORDERED: SODIUM POLYSTYRENE SULFON/SORB 15 G/60 ML BTL PO ONE (22:33)
[2017-04-07] MEDS ORDERED: ALBUTEROL SULFATE 2.5 MG/0.5 ML VIAL.NEB IH ONE ×3 (22:33→23:22)
[2017-04-07] MEDS ORDERED: SODIUM POLYSTYRENE SULFON/SORB 15 G/60 ML BTL ONE (22:35)
[2017-04-07] MEDS ORDERED: CALCIUM GLUCONATE 4.65 MEQ/10 ML VIAL IV ONE ×2 (22:35→22:42)
[2017-04-07] MEDS ORDERED: INSULIN REGULAR, HUMAN 100 UNITS/ML VIAL ONE (22:41)
[2017-04-07 23:27] LABS: Urine Bilirubin Negative (NEGATIVE); Urine Ketone Negative (NEGATIVE); Urine Nitrite Negative (NEGATIVE); Urine Protein 15 mg/dL (NEGATIVE); Urine Urobilinogen Normal (NORMAL); Urine pH 5.5 pH (5.0-7.0)
[2017-04-07 23:38] LABS: Urine Appearance Clear; Urine Bacteria 1+; Urine Blood 5 /ul (NEGATIVE); Urine Color Yellow; Urine RBC None Seen /hpf (0-5)
[2017-04-07 23:39] LABS: Urine Fine Granular Cast 0-5 /LPF
[2017-04-07 23:40] LABS: Urine Amorphous Sediment TRACE (NONE-FEW)
[2017-04-08 00:50] LABS: Anion Gap 16.9 mmol/L (6.8-13.8); BUN/Creatinine Ratio 25.4 (9.0-21.6); Calcium * 8.7 mg/dL (7.9-10.9); Carbon Dioxide 12.2 mmol/L (24-32.6); Estimated Creat Clear 30.8
[2017-04-08 00:53] LABS: Potassium 7.1 mmol/L (3.4-4.6)
[2017-04-08] MEDS ORDERED: DEXTROSE 50%-WATER 50 ML SYRG IV ONE (00:55)
[2017-04-08] MEDS ORDERED: SODIUM BICARBONATE 1 MEQ/ML SYRG IV ONE (00:55)
[2017-04-08] MEDS ORDERED: INSULIN REGULAR, HUMAN 100 UNITS/ML VIAL SC ONE (00:55)
[2017-04-08] MEDS ORDERED: NORMAL SALINE 1,000 ML IV PRN (01:03)
[2017-04-08 01:35] VITALS: BP 115/54
[2017-04-08] MEDS ORDERED: BUMETANIDE 0.25 MG/ML VIAL IV ONE (01:45)
== END 2017-04-08 01:52 | disposition short-term general hospital (02) ==
LOC: ER 21:33
DX: E87.5 Hyperkalemia (principal); N39.0 Urinary tract infection, site not specified; R33.9 Retention of urine, unspecified; Z85.828 Personal history of other malignant neoplasm of skin; Z87.891 Personal history of nicotine dependence; E11.9 Type 2 diabetes mellitus without complications; Z79.4 Long term (current) use of insulin; I48.91 Unspecified atrial fibrillation; I50.9 Heart failure, unspecified; I10 Essential (primary) hypertension; Z95.5 Presence of coronary angioplasty implant and graft